=== PATIENT | female | born 1985 | race Caucasian/White ===

== ENCOUNTER 2021-12-07 13:38 | Outpatient (CLI) | payer BC, SELFPAY ==
--- NOTE | 2021-12-07 14:30 | US_ITS ---
WS: [id number] TRANSABDOMINAL PELVIC AND TRANSVAGINAL PELVIC ULTRASOUND HISTORY: POLYCYSTIC OVARY SYNDROME COMPARISON: None available. Uterus: 10.7 cm x 5.5 cm x 3.9 cm. Moderately enlarged anteverted uterus. Endometrium: 1.1 cm. Normal trilaminar appearance of the endometrium. No mass identified. Right ovary: 4.0 cm x 3.4 cm x 2.0 cm. Small follicle associated with the RIGHT ovary measures 1.6 x 1.2 x 2.1 cm. Left ovary: 4.4 cm x 4.6 cm x 3.1 cm. Complex cystic mass associated with the LEFT ovary. The cyst me asures 2.0 x 2.7 x 3.2 cm. There is good through transmission. No solid component. No free fluid. US/US pelvic with transvaginal IMPRESSION: 1. Normal trilaminar appearance of the endometrium. 2. No complex cyst LEFT ovary. Small dominant follicle RIGHT ovary.
== END 2021-12-07 13:39 | disposition home or self-care (01) ==
PROVIDERS: Visit Provider Obstetrics & Gynecology
DX: E28.2 Polycystic ovarian syndrome (principal)
CPT/HCPCS: 76830; 76856